=== PATIENT | male | born 1955 | race Caucasian/White ===

== ENCOUNTER 2019-09-30 11:21 | Emergency (ER) | payer MEDICARE ==
--- NOTE | 2019-09-30 11:36 | EDM.PDOC ---
ED HPI GENERAL MEDICAL PROBLEM - General Chief Complaint: Bite:Animal, Insect Stated Complaint: CAT BITE/SCRATCH Time Seen by Provider: 09/30/19 11:36 Source of Information: Reports: Patient History Limitations: Reports: No Limitations - History of Present Illness INITIAL COMMENTS - FREE TEXT/NARRATIVE: 64-year-old male presents to the ED with numerous cat scratches and perhaps bites to the volar aspect of his mid left forearm and dorsal left hand. This cat is attacked him once or twice in the past. He threw it in the basement of the house so that animal control could find the animal. Therefore it will be assessed as to whether or not it has had his rabies shots. Patient is not sure when he had his last tetanus toxoid. None of the wounds are bleeding and they are all sort of superficial or puncture wounds and does not require any sutures. Onset: Today Onset Date: 09/30/19 Onset Time: 10:30 Duration: Minutes: Location: Reports: Upper Extremity, Left (Injuries to the left volar mid forearm and dorsal left hand) Quality: Reports: Ache, Burning, Stabbing Severity: Mild Improves with: Reports: None Worsens with: Reports: None Context: Denies: Activity, Exercise, Lifting, Sick Contact, Trauma, Other Associated Symptoms: Reports: No Other Symptoms Treatments [employer] TECH[employer]ICIAN: Reports: Other (see below) (And is wash the wounds aggressively at home and place bacitracin ointment.) - Related Data Allergies Allergy/AdvReac Type Severity Reaction Status Date / Time No Known Allergies Allergy Verified 09/30/19 11:37 Home Meds: Home Meds Amoxicillin/Potassium Clav [Augmentin 500-125 Tablet] 1 each PO BID #12 tablet 09/30/19 [Rx] Past Medical History - Past Surgical History Musculoskeletal Surgical History: Reports: Other (See Below) (Patient had to have open drainage of a wound to his left lower extremity as a child due to development of a significant infection.) Social & Family History - Living Situation & Occupation Living situation: Reports: Single Occupation: Retired ED ROS GENERAL - Review of Systems Review Of Systems: See Below Constitutional: Denies: Fever, Chills, Malaise, Weakness, Fatigue HEENT: Reports: Glasses Respiratory: Reports: No Symptoms Cardiovascular: Reports: No Symptoms Endocrine: Reports: No Symptoms GI/Abdominal: Reports: No Symptoms : Reports: Frequency, Other (Nocturia x2) Musculoskeletal: Reports: Joint Pain (Occasional pain knees hips and low back) Skin: Reports: No Symptoms Neurological: Reports: No Symptoms Psychiatric: Reports: No Symptoms Hematologic/Lymphatic: Reports: No Symptoms Immunologic: Reports: No Symptoms ED EXAM, ANIMAL BITE - Physical Exam Exam: See Below Exam Limited By: No Limitations General Appearance: Alert, WD/WN, Anxious (Mildly anxious.) Respiratory/Chest: No Respiratory Distress, Lungs Clear, No Accessory Muscle Use Cardiovascular: Normal Peripheral Pulses, Regular Rate, Rhythm, No Edema, No Gallop, No Murmur, No Rub Extremities: Other (Examination of the left upper extremity reveals numerous scratches and a few bite garcia to the lower aspect of his mid left forearm and a deeper scratch to the dorsal left hand over the base of the fifth metacarpal carpal. None of the wounds are deep enough to require suture repair.) Neurological: Alert, Oriented, CN II-XII Intact Psychiatric: Normal Affect, Normal Mood Skin Exam: Normal Color, Warm/Dry Course - Vital Signs Last Recorded V/S: Last Vital Signs Temp 37.0 C 09/30/19 11:30 Pulse 83 09/30/19 11:30 Resp 16 09/30/19 11:30 BP 139/93 H 09/30/19 11:30 Pulse Ox 98 09/30/19 11:30 - Orders/Labs/Meds Orders: Active Orders 24 hr Category Date Time Status Vaccines to be Administered [RC] PER UNIT ROUTINE Care 09/30/19 11:43 Active Meds: Medications Discontinued Medications Generic Name Dose Route Start Last Admin Trade Name Freq PRN Reason Stop Dose Admin Diphtheria/Tetanus/Acell Pertussis 0.5 ml 09/30/19 11:43 Adacel IM 09/30/19 11:44 .ONCE ONE - Radiology Interpretation Free Text/Narrative:: 64-year-old male presents to the ED after being attacked by a cat. He states that the second time that is it occurred. It is not his cat. He threw the cat in the basement of the market intelligence consultant's window so that animal control can find the animal. He is unsure whether the animal has received rabies vaccine. Injuries were to that of the volar aspect of his mid left forearm with numerous scratches which are fairly superficial and perhaps 1 or 2 bite garcia. Deep scratch over the dorsal aspect of the left fifth base of fifth metacarpal. Since it is unknown when his last tetanus toxoid was administered he will have Tdap given in the ED. He will then daily cleanse the wounds and placed topical antibiotic such as bacitracin or Polysporin on the wounds once daily. He will take Augmentin 100/125 mg tablet twice daily for the next 6 days to prevent secondary wound infection. He will follow-up if any signs of infection develop such as redness, swelling or obvious pus. Departure - Departure Time of Disposition: 11:49 Disposition: Home, Self-Care 01 Condition: Fair Clinical Impression: Cat bite involving extremity - Discharge Information *PRESCRIPTION DRUG MONITORING PROGRAM REVIEWED*: Not Applicable *COPY OF PRESCRIPTION DRUG MONITORING REPORT IN PATIENT RAJINDER: Not Applicable Prescriptions: Amoxicillin/Potassium Clav [Augmentin 500-125 Tablet] 1 each PO BID #12 tablet Referrals: PCP,None [Primary Care Provider] - Forms: ED Department Discharge Additional Instructions: Evaluation in the emergency room today in regards to injuries to the left mid forearm and dorsal left hand that occurred from a cat bite attack. Most of the wounds are superficial. It appears to be a combination of scratches and perhaps a few puncture wounds from bite to the left forearm. Wounds have been cleansed by you and bacitracin placed which was an excellent idea. Continue to use bacitracin to all the wounds at least once daily and even better to use it twice daily until healed. You will need oral antibiotic Augmentin 500/125 mg tablet twice daily for the next 6 days to prevent secondary wound infection as cat injuries are very prone to becoming infected. Your tetanus diphtheria pertussis vaccine will be updated today and is good for the next 10 years. During the medical care if any signs of infection occur such as increased redness, swelling or obvious pus. Sepsis Event Note (ED) - Focused Exam Vital Signs: Vital Signs Temp Pulse Resp BP Pulse Ox 09/30/19 11:30 37.0 C 83 16 139/93 H 98 - My Orders Last 24 Hours: My Active Orders 09/30/19 11:43 Vaccines to be Administered [RC] PER UNIT ROUTINE - Assessment/Plan Last 24 Hours: My Active Orders 09/30/19 11:43 Vaccines to be Administered [RC] PER UNIT ROUTINE
[2019-09-30] MEDS ORDERED: Diphtheria,Pertussis(Acell),Tetanus Vaccine 0.5 ML Syringe IM ONE (11:43)
== END 2019-09-30 12:10 | disposition home or self-care (01) ==
LOC: JD.ED 11:21
DX: S51.852A Open bite of left forearm, initial encounter (principal); S61.452A Open bite of left hand, initial encounter; Z23 Encounter for immunization; W55.01XA Bitten by cat, initial encounter
CPT/HCPCS: 90471; 90715; 99283; 99283-25

== ENCOUNTER 2022-07-25 20:24 | Emergency (ER) | payer MEDICARE ==
[2022-07-25 20:56] LABS: APPEARANCE,URINE CLEAR (Clear); BILIRUBIN,URINE NEGATIVE (Negative); COLOR,URINE PINK (Yellow); GLUCOSE,URINE NEGATIVE (Negative); KETONES,URINE NEGATIVE (Negative); LEUKOCYTE ESTERASE,URINE NEGATIVE (Negative); NITRITE,URINE NEGATIVE (Negative); OCCULT BLOOD,URINE 3+ (Negative); PH,URINE 6.5 (5.0-8.0); PROTEIN,URINE 1+ (Negative); UROBILINOGEN,URINE 0.2 (0.2-1.0)
[2022-07-25 21:03] LABS: BACTERIA,URINE RARE /hpf (FEW); EPITHELIAL CELLS,URINE NOT SEEN /hpf (0-5); MUCUS,URINE NOT SEEN /hpf (FEW); RBC,URINE >100 /hpf (0-5); WBC,URINE 0-5 /hpf (0-5)
== END 2022-07-25 21:20 | disposition home or self-care (01) ==
LOC: JD.ED 20:24
DX: R33.9 Retention of urine, unspecified (principal)
CPT/HCPCS: 51702; 81001; 99283; 99284

== ENCOUNTER 2023-10-12 03:40 | Emergency (ER) | payer MEDICARE ==
[2023-10-12] MEDS ORDERED: Sodium Chloride 0.9% 10 ML Syringe FLUSH PRN (04:04)
[2023-10-12 04:09] LABS: BASOPHILS ABSOLUTE AUTO 0.1 K/mm3 (0.0-0.2); BASOPHILS PERCENT AUTO 0.4 % (0.0-1.0); EOSINOPHILS PERCENT AUTO 0.2 % (0.0-6.0); HEMATOCRIT 46.5 % (42.0-52.0); HEMOGLOBIN 15.5 gm/dl (14.0-18.0); IMMATURE GRAN ABSOLUTE AUTO 0.04 K/mm3 (0.00-0.05); IMMATURE GRAN PERCENT AUTO 0.3 % (0.0-0.4); LYMPHOCYTES ABSOLUTE AUTO 1.4 K/mm3 (1.0-4.8); LYMPHOCYTES PERCENT AUTO 11.4 % (24.0-44.0); MEAN CORPUSCULAR HEMOGLOBIN 29.7 pg (28.0-32.0); MEAN CORPUSCULAR HGB CONC 33.3 g/dl (32.0-36.0); MEAN CORPUSCULAR VOLUME 89.1 fl (83.0-99.0); MEAN PLATELET VOLUME 9.1 fl (9.4-12.4); MONOCYTES ABSOLUTE AUTO 0.4 K/mm3 (0.0-0.8); MONOCYTES PERCENT AUTO 3.5 % (0.0-8.0); NEUTROPHILS ABSOLUTE AUTO 10.6 K/mm3 (1.8-7.7); NEUTROPHILS PERCENT AUTO 84.2 % (41.0-71.0); PLATELET COUNT,PLT 251 K/mm3 (150-400); RED BLOOD CELL COUNT 5.22 M/mm3 (4.52-5.90); WHITE BLOOD CELL COUNT,WBC 12.58 K/mm3 (3.9-11.3)
[2023-10-12] MEDS: Ondansetron 4 MG/2 ML SDV IVPUSH ONE (04:23)
[2023-10-12 04:31] LABS: A/G RATIO 1.3 (1-2); ALANINE AMINOTRANSFERASE,ALT 22 U/L (16-63); ALBUMIN 4.2 g/dl (3.4-5.0); ALKALINE PHOSPHATASE 103 U/L (46-116); ANION GAP 16.3 (5-15); ASPARTATE AMNIOTRANSFERASE,AST 15 U/L (15-37); BILIRUBIN TOTAL 0.6 mg/dL (0.2-1.0); BLOOD UREA NITROGEN,BUN 26 mg/dL (7-18); BUN/CREATININE RATIO 13.7 (14-18); CALCIUM 9.3 mg/dL (8.5-10.1); CARBON DIOXIDE,CO2 23 mEq/L (21-32); CHLORIDE,CL 107 mEq/L (98-107); CREATININE 1.9 mg/dL (0.7-1.3); EST CRCL DRUG DOSING (CG) 36.69 mL/min; ESTIMATED GFR 38 mL/min (>60); GLUCOSE RANDOM 174 mg/dL (70-99); MAGNESIUM 1.8 mg/dL (1.8-2.4); POTASSIUM,K 4.3 mEq/L (3.5-5.1); PROTEIN TOTAL,TP 7.4 g/dl (6.4-8.2); SODIUM,NA 142 mEq/L (136-145)
[2023-10-12 04:34] LABS: APPEARANCE,URINE CLEAR (Clear); BILIRUBIN,URINE NEGATIVE (Negative); COLOR,URINE YELLOW (Yellow); GLUCOSE,URINE NEGATIVE (Negative); KETONES,URINE 1+ (Negative); LEUKOCYTE ESTERASE,URINE NEGATIVE (Negative); NITRITE,URINE NEGATIVE (Negative); OCCULT BLOOD,URINE 3+ (Negative); PH,URINE 5.5 (5.0-8.0); PROTEIN,URINE NEGATIVE (Negative); UROBILINOGEN,URINE 0.2 (0.2-1.0)
[2023-10-12 04:34] LABS: C-REACTIVE PROTEIN < 0.05 mg/dL (<0.30)
[2023-10-12 04:51] LABS: BACTERIA,URINE FEW /hpf (FEW); CALCIUM OXALATE CRYSTALS,URINE RARE; EPITHELIAL CELLS,URINE NOT SEEN /hpf (0-5); RBC,URINE 20-30 /hpf (0-5); WBC,URINE 0-5 /hpf (0-5)
[2023-10-12 04:52] LABS: MUCUS,URINE MODERATE /hpf (FEW); YEAST,URINE FEW (NOT SEEN)
[2023-10-12] MEDS: Ketorolac 30 MG/ML SDV IVPUSH ONE (05:01)
[2023-10-12] MEDS: Sodium Chloride 0.9% 1,000 ML IV ONE (05:01)
== END 2023-10-12 06:03 | disposition home or self-care (01) ==
LOC: JD.ED 03:40
DX: N13.2 Hydronephrosis with renal and ureteral calculous obstruction (principal)
CPT/HCPCS: 36415; 74176; 80053; 81001; 83735; 85025; 86140; 96361; 96374; 96375; 99284; J1885; J2405; J7030